=== PATIENT | female | born 1930 | race Caucasian/White ===

== ENCOUNTER → 2017-03-07 | Outpatient (CLI) | payer OTHER ==
[~2017-03-07] VITALS: Ht 157.5 cm; Wt 65.9 kg
[~2017-03-07] MED LIST: CYANOCOBALAM1000 MCG PO; GLUCOSAMINE &1 EAC1 PO; GLYBURID-METFO1 EAC3 PO; HYDROCODON-ACE1 EAC8 PO; IBUPROFEN200 M1 PO; JANUVIA100 MG PO; LOSARTAN-HCTZ1 EACH PO; NAPROSYN500 MG PO; NEXIUM40 MG PO; SYNTHROID75 MCG PO; TRAMADOL 50 MG50 MG PO; VITAMIN B-12500 MCG PO
--- NOTE | ~2017-03-07 | HPC ---
[facility] [address] [place] [address] PAIN MANAGEMENT CONSULTATION Name: CHARLY GREENFIELD Room #: REG ABBY Hayley#: [id number] Admission: 03/07/17 Attend Phys: Tonny Burns DO Discharge: Date of : 31 Report #: [id number] THIS REPORT FOR: //name// CC: ERICH Burns DATE OF SERVICE: 03/07/2017 CHIEF COMPLAINT: Left and right lower extremity pain, left hip pain. HISTORY OF PRESENT ILLNESS: As you know, the patient is an 86-year-old female who has had acute onset of left hip pain, intermittent, bilateral lower extremity pain that began on 09/10/2016. The patient denies injury or trauma that may have led to symptoms. She states she has sought evaluation through her primary care physician who trialed some conservative treatment, but no definitive assistance in her overall pain. She apparently continued to report left hip, left leg pain, the right knee pain for which the patient was then referred to our clinic to discuss options for treatment. She comes to us today without imaging studies. The patient indicates her pain is continuous; describes the pain as shooting, aching, pulling, throbbing; places current pain score 7/10, daily average 7/10, worst pain has been is 10+/10. The patient states that standing and walking exacerbates her left hip and anterior groin pain, also exacerbates her right knee pain. Rest appears to improve symptoms almost completely. PAST MEDICAL HISTORY: 1. Diabetes mellitus type 2. 2. Hypertension. 3. Chronic kidney disease. 4. Thyroid disease. 5. Degenerative joint disease. 6. Osteoarthritis. PAST SURGICAL HISTORY: Excisions of nephrolithiasis. SOCIAL HISTORY: The patient denies tobacco, alcohol, IV or illicit drug use. 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 She is not receiving workman's compensation nor is she trying to obtain disability benefits. She is accompanied by her who is present in the room today. REVIEW OF SYSTEMS: Positive for fatigue, weakness, frequent and recurrent headaches, wearing corrective eyewear, blurred and double vision, cataracts, hearing loss, chronic sinus problems with rhinitis, shortness of breath, palpitations, frequent diarrhea interspersed with constipation, abdominal pain, nocturia, kidney stones, changes in hair and nail texture, varicose veins, [address] [address] PAIN MANAGEMENT CONSULTATION Name: CHARLY GREENFIELD Room #: REG CLMarzena Hardy#: [id number] Admission: 03/07/17 Attend Phys: Tonny Burns DO Discharge: Date of : 31 Report #: [id number] numbness and tingling sensations periodically, depression, insomnia, non-insulin dependent diabetes, thyroid disease, bleeding or bruising tendencies, chronic left hip pain and right knee pain. All other review of systems negative per 12-point review of systems other than those listed in history of present illness. Pain impact score 61/70 indicating severe near complete interference of daily activities secondary to pain. ALLERGIES: No known drug allergies. CURRENT MEDICATIONS: Tramadol 50 mg every 6 hours p.r.n. for pain, ibuprofen 200 mg 3 times a day, cyanocobalamin 1000 mcg per day, glyburide/metformin 5/500 twice a day, levothyroxine 75 mcg per day, losartan/hydrochlorothiazide 50/12.5 mg twice a day. IMAGING: No imaging available. PHYSICAL EXAMINATION: VITAL SIGNS: Blood pressure 81/54, pulse 75, respiratory rate 16 unlabored. The patient is 97% on room air. Height 5 feet 2 inches tall, weight 145 pounds, BMI calculated 26.6. GENERAL: Well-developed, well-nourished, well-hydrated 86-year-old female appearing her stated age, placing current pain score at approximately 10/10 left hip, left anterior groin, right knee. HEENT: Normocephalic, atraumatic. Pupils equal, round, reactive to light. Extraocular muscles are intact. Sclerae nonicteric without injection. NEUROLOGIC: Cranial nerves 2-12 grossly intact. Speech is fluent. The patient is deemed a good historian. LUNGS: Clear. No wheeze, rhonchi or rales. CARDIOVASCULAR: Regular. No appreciable gallop or rub. ABDOMEN: Soft, mildly obese, normoactive bowel sounds. EXTREMITIES: Show no clubbing, no cyanosis, no edema. MUSCULOSKELETAL: The patient has a palpatory tenderness directly over the left hip. Both active and passive range of motion of the hip intensifies the patient's pain as does weightbearing. Internal and external rotation causes intensification of pain. Bell test positive left, negative right. Active and passive range of motion of the right knee causes intensification of pain. There is no crepitus with movement. There is no laxity of the medial or collateral ligaments. Drawer tests appear negative. There is some palpatory tenderness over the paraspinal musculature of lower lumbar spine. No spinous process tenderness. Seated straight leg raising negative. Supine straight leg raising negative. Muscle bulk and tone equal and symmetrical in lower extremities. ASSESSMENT: 1. Severe left hip pain, likely arthritic in nature. [address] [address] PAIN MANAGEMENT CONSULTATION Name: CHARLY GREENFIELD Room #: REG ABBY Hardy#: [id number] Admission: 03/07/17 Attend Phys: Tonny Burns DO Discharge: Date of : 31 Report #: [id number] 2. Chronic right knee pain, likely arthritic in nature. 3. Myofascial pain. 4. Chronic low back pain. 5. Chronic intractable pain. PLAN: 1. The patient has been referred to our service by her primary care physician, Dr. Erich Mariscal. The patient comes today without any imaging studies to evaluate the hip or the knee. I do believe this would be an important component of evaluating the patient further. From the physical exam standpoint, she appears to have fairly severe changes in the left hip, which will likely need either intra-articular hip injections for maintaining pain control for a period of time or even discussion of total hip arthroplasty. Given the findings on physical exam, I will have the patient undergo x-ray imaging as quickly as possible to review the amount of arthritic changes within that left hip, though given the physical exam today and her trouble with ambulation, she is likely suffering from either [id number] left hip pathology. We will have the patient undergo x-ray imaging, review the findings once it is available. 2. In regards to the patient's right knee pain, I believe this is compensatory to the left hip problems that she has been experiencing. Right knee appears to be fairly arthritic. There are some changes around that right knee after a fall that she sustained a couple of months back. This apparently exacerbated her knee symptoms. We will need to look at her right knee eventually as well, though her left hip is the most concerning thing today. I believe her right knee is arthritic in nature. Treatment options would include the following, as would be the treatment for her left hip. 3. We discussed physical therapy to help with left hip and right knee pain. Physical therapy will be twice a week for 4 weeks minimum, possibly extending to 6 weeks. This will increase strength and mobility, may reduce her symptoms. We discussed initiation of medication in the form of nonsteroidal anti-inflammatories to assist for pain control. The patient apparently has been taking some mebb-dgt-ntlbajo Aleve with pretty good efficacy. I would recommend at least initiation of a consistent nonsteroidal anti-inflammatory to help both with the knee and hip pain that she is experiencing currently. We discussed intra-articular knee injections on the right side and intra-articular hip injections to address both hip and knee pain. We would have to separate these by 2 weeks to decrease steroid exposures as much as possible. She will consider this as an option for treatment depending on the findings on x-ray imaging of the left hip and ultimately right knee imaging. We also discussed surgical options such as a total hip arthroplasty and either right knee arthroscopy or total right knee replacement. After reviewing risks and benefits of all proposed treatment options, the patient chose to undergo imaging of the left hip and begin the medication management. 4. The patient was provided prescription of naproxen sodium 500 mg dose 1 tab p.o. t.i.d., I have given the patient #90 tablets, 2 refills. This is 3 months' worth of medication. She is to watch for dyspepsia, worsening of blood [address] [address] PAIN MANAGEMENT CONSULTATION Name: CHARLY GREENFIELD Room #: REG ABBY Hardy#: [id number] Admission: 03/07/17 Attend Phys: Tonny Burns DO Discharge: Date of : 31 Report #: [id number] pressure, lower extremity edema with the medication, she notes any side effects, to discontinue immediately. She is then to contact the clinic with questions or concerns. 5. The patient will undergo x-ray imaging of the left hip. We will review the findings once it is available and discuss with the patient at followup visit or if she wishes to contact our clinic, we can discuss the findings over telephone. 6. We wish to thank Dr. Mariscal for the referral of the patient to our clinic. We will keep you apprised of her response to treatment as we address what appears to be left hip pathology due to osteoarthritis and right knee pain secondary to rapidly progressing arthritic changes. Again, we wish to thank you for the opportunity to see the patient in consultation. <ELECTRONICALLY SIGNED> By: Tonny Burns DO 03/08/17 [id number] Tonny Burns DO /nt
[2017-03-07 09:24] VITALS: BP 81/54
== END | disposition home or self-care (01) ==
LOC: PAIN 07:13
DX: M25.552 Pain in left hip (principal); M25.561 Pain in right knee; M79.1 Myalgia; G89.29 Other chronic pain; E11.9 Type 2 diabetes mellitus without complications; I12.9 Hypertensive chronic kidney disease with stage 1 through stage 4 chronic kidney disease, or unspecified chronic kidney disease; N18.9 Chronic kidney disease, unspecified; E07.9 Disorder of thyroid, unspecified; M19.90 Unspecified osteoarthritis, unspecified site; Z87.442 Personal history of urinary calculi

== ENCOUNTER → 2017-03-21 | Outpatient (CLI) | payer OTHER ==
[~2017-03-21] VITALS: Ht 157.5 cm; Wt 66.9 kg
--- NOTE | ~2017-03-21 | HPC ---
[facility] [address] [place] [address] PAIN MANAGEMENT CONSULTATION Name: CHARLY GREENFIELD Room #: REG ABBY Richard.#: [id number] Admission: 03/21/17 Attend Phys: Tonny Burns DO Discharge: Date of : 31 Report #: [id number] THIS REPORT FOR: //name// CC: Kevan Burns DATE OF SERVICE: 03/21/2017 REFERRING PHYSICIAN: Kevan Mariscal MD CHIEF COMPLAINT: Left and right lower extremity pain, left hip pain. HISTORY OF PRESENT ILLNESS: As you know, the patient is an 86-year-old female who was referred to our service for acute onset of left hip pain and bilateral lower extremity pain. She was seen in consultation on 03/07/2017, she was sent for imaging of the left hip as there was concerned of intrinsic hip pathology existed. We also started the patient on medication management in the form of naproxen. The patient indicates good benefit with the naproxen and in fact 4 doses of naproxen "nearly cured her hip." She returns today in followup visit indicating right lower extremity symptoms involving the knee and continued left hip pain as she has not taken her naproxen in 2 days. She indicated that she had the potential side effects with naproxen and wished to discuss this before she continues the therapy. She is placing pain score 7/10, states her pain is aching, dull, sharp and sore, exacerbated with walking, improves with rest, cold medications, and BenGay. ALLERGIES: No reported drug allergies. CURRENT MEDICATIONS: Cyanocobalamin 1000 mcg per day, glyburide/metformin 5/500 one tab b.i.d., levothyroxine 75 mcg per day, losartan/hydrochlorothiazide 50/12.5 mg twice a day, and naproxen 500 mg b.i.d. SOCIAL HISTORY: The patient denies tobacco, alcohol, IV or illicit drug use. She is accompanied by her who she is the sole provider for. IMAGIN. X-ray of the right hip obtained on 09/12/2016, shows no acute process noted changes. 2. X-ray of the left hip obtained on 03/07/2017, shows severe left hip joint narrowing. No fractures or dislocations. PHYSICAL EXAMINATION: VITAL SIGNS: Blood pressure 155/79, pulse 71, respiratory rate 18 and unlabored, the patient is 97% on room air, height 5 feet 2 inches tall, weight 147.4 pounds, and BMI calculated [place] 27. [place] [address] PAIN MANAGEMENT CONSULTATION Name: CHARLY GREENFIELD Room #: REG CL Richard.#: [id number] Admission: 03/21/17 Attend Phys: Tonny Burns DO Discharge: Date of : 31 Report #: [id number] GENERAL: Well-developed, well-nourished, well-hydrated 86-year-old female, appearing her stated age, placing current pain score 7/10. HEENT: Normocephalic, atraumatic. Pupils are equal, round, and reactive to light. EXTREMITIES: Show no clubbing, no cyanosis, and no edema. MUSCULOSKELETAL: Suzie's test is positive left, negative right. Pain is elicited with standing from a seated position. Pain is also generated with ambulating across our clinic floor. Drawer tests remain negative, both anterior and posterior bilateral knees, though there is some pain with active and passive range of motion of the right knee. ASSESSMENT: 1. Left hip osteoarthritis. 2. Right knee osteoarthritis. 3. Chronic low back pain. 4. Degeneration of lumbar spine. 5. Chronic intractable pain. PLAN: 1. The patient has returned today in followup visit where we have discussed the findings from the x-ray imaging obtained from last visit. The patient is suffering from severe arthritic changes of the left hip. There is a significant loss of joint space on this left side and this is the source of the patient's left-sided discomfort. Weightbearing and activities such as ambulation exacerbates symptoms, classic for left hip pathology. The patient is also suffering from arthritic changes in the right knee, weightbearing, passive and active range of motion appear to exacerbate the right knee pain; pain is greatly diminished upon seated position. We discussed with the patient the treatment options for right knee osteoarthritis and left knee osteoarthritis, the options for treatment include the following. We discussed physical therapy, stretching exercises to maintain use of both the hip and the knee. We discussed medication management with continuation of the naproxen sodium. The potential side effects the patient reported were not related to the medication as they were not dose dependent. I believe that her symptoms that she was experiencing issues may be exacerbated by the naproxen, but certainly not directly caused. I have advised the patient to utilize the naproxen 500 mg twice a day, determine if she has repeat of symptoms, if she does we will discuss other options for treatment including the addition of medication to assist for gastroesophageal reflux disease or rotation of medication to a potential less potent medication. The patient has prescription of the naproxen, she does not need refills at this juncture. We also discussed with the patient intraarticular joint injections involving both the hip and the knee, she might consider these options if her pain does not improve with more traditional oral medication. 2. We also discussed with the patient the possibility of surgical options certainly she is a candidate given her health at present for a total hip arthroplasty and surgical processes on the right knee. The patient wishes to [facility] [address] [place] [address] PAIN MANAGEMENT CONSULTATION Name: CHARLY GREENFIELD Room #: REG CLI [facility].#: [id number] Admission: 03/21/17 Attend Phys: Tonny Burns DO Discharge: Date of : 31 Report #: [id number] avoid this option. 3. We will see the patient back in followup visit on an as needed basis. She appears to be doing well with medication. She does have appointments to return if she wishes to make changes in her therapy. She was advised to monitor her efficacy with the naproxen and determine if no side effects were with this medication. 4. We wish to thank Dr. Mariscal for the opportunity to follow this patient's case, she wishes to return to see Dr. Mariscal and we will be available to see her back in followup visit as needed. By: 0714 1042 Tonny Burns DO /nt
[2017-03-21 10:29] VITALS: BP 155/79
== END | disposition home or self-care (01) ==
LOC: PAIN 07:05
DX: M16.12 Unilateral primary osteoarthritis, left hip (principal); M17.11 Unilateral primary osteoarthritis, right knee; M54.5 Low back pain; G89.29 Other chronic pain; M51.36 Other intervertebral disc degeneration, lumbar region

== ENCOUNTER 2017-05-03 12:00 | Emergency (ER) | payer OTHER ==
[~2017-05-03] VITALS: Ht 157.5 cm; Wt 65.8 kg
[2017-05-03 13:32] VITALS: BP 168/71
== END 2017-05-03 14:11 | disposition home or self-care (01) ==
LOC: ER 12:00
DX: T50.995A Adverse effect of other drugs, medicaments and biological substances, initial encounter (principal); G25.2 Other specified forms of tremor; I10 Essential (primary) hypertension; E03.9 Hypothyroidism, unspecified; E11.9 Type 2 diabetes mellitus without complications; K21.9 Gastro-esophageal reflux disease without esophagitis; Z98.890 Other specified postprocedural states; Z87.442 Personal history of urinary calculi; Z88.5 Allergy status to narcotic agent; Z88.6 Allergy status to analgesic agent; Z88.4 Allergy status to anesthetic agent; Y92.89 Other specified places as the place of occurrence of the external cause

== ENCOUNTER → 2017-05-03 | Outpatient (CLI) | payer OTHER ==
[~2017-05-03] VITALS: Ht 157.5 cm; Wt 65.8 kg
[~2017-05-03] MED LIST changes: +ASPIR 8181 MG PO; +LEVOTHYROXIN0.112 M1 PO; +MULTIVITAMINS1 EAC7 PO; +OMEPRAZOLE 20 M20 M1 PO; +TUMS PO; +VITAMIN D31000 UNI2 PO; +VOLTAREN GEL 1100 G2 TOP
--- NOTE | ~2017-05-03 | P ---
[facility] [place] [address] [place] [address] PROCEDURE REPORT Name: CHARLY GREENFIELD Room #: REG DELBERTMarzena Hardy#: [id number] Admission: 05/03/17 Attend Phys: Yadiel Howard Discharge: Date of : 31 Report #: [id number] THIS REPORT FOR: //name// CC: Yadiel Mariscal MD DATE OF SERVICE: 05/03/2017 PROCEDURE PERFORMED: Upper endoscopy with biopsies. HISTORY OF PRESENT ILLNESS: The patient is an 86-year-old female who was taking Naprosyn twice a day for arthritic pain, began having black stool, she is now held this Naprosyn for the last 2 weeks. She is also on aspirin on a daily basis. She has been placed on omeprazole, which she has been on for several weeks as well. She denies any further melanotic stools. She was having abdominal pain, but no further. She denies any dysphagia. No previous, history of peptic ulcer disease. DESCRIPTION OF PROCEDURE: The risks and benefits of the procedure were explained to the patient, those risks including, but not limited to bleeding, perforation, and the risk of sedation. She understood these risks and gave informed consent. Sedation was given using propofol per anesthesia. Next, using a standard Convertio Coinon upper endoscope, the scope was placed in the patient's mouth and advanced under direct vision through the esophagus, stomach, and into the second portion of the duodenum. The esophagus was normal throughout. The GE junction was normal. Overall, the gastric mucosa was normal. The pylorus was normal and patent. In the proximal portion of the duodenal bulb, a 1.2 cm clean white based ulcer was noted and no evidence of bleeding, no visible vessel or clots. The first and second portions of the duodenum were normal. The scope was then brought back into the patient's stomach and biopsies were obtained to rule out the possibility of H. pylori. The scope was then withdrawn and the procedure terminated. The patient tolerated the procedure well. IMPRESSION: 1. Duodenal bulb ulcer. 2. Otherwise, normal upper endoscopy. RECOMMENDATIONS: 1. Await biopsy results. 2. Continue PPI therapy. 3. We would continue holding the aspirin for the next 2 weeks. If the patient remains on aspirin or NSAIDs in the future, we would recommend continuing PPI therapy indefinitely. [address] [address] PROCEDURE REPORT Name: CHARLY GREENFIELD Room #: REG ABBY Hardy#: [id number] Admission: 05/03/17 Attend Phys: Yadiel Howard Discharge: Date of : 31 Report #: [id number] Thank you for allowing me to participate in her care. <ELECTRONICALLY SIGNED> By: Yadiel Garcia MD 05/06/17 0812 [id number] Yadiel Garcia MD /nt
--- NOTE | ~2017-05-03 | S ---
[facility] [place] [address] [place] [address] SURGICAL PATH RPT PROCEDURE Name: CHARLY KIM Room #: REG CLMrazena Richard.#: [id number] Admission: 05/03/17 Date of : 31 Discharge: Report #: [id number] Path Case #: [id number] PATHOLOGY REPORT COLLECTION DATE: 05/03/2017 RECEIVED DATE: 05/04/2017 SUBMITTING PHYS: Dr. Yadiel Garcia OTHER PHYS: Dr. Kevan Mariscal SPECIMEN(S) RECEIVED: A.Gastric bx * * * * * * * * * * * * FINAL DIAGNOSIS: Gastric mucosa, endoscopic biopsy: - Mild reactive gastropathy. - Negative for intestinal metaplasia or atrophy. - Negative for Helicobacter pylori. COMMENT: Helicobacter pylori immunohistochemical stain performed on block A1 - Negative. PATHOLOGIST: Stacie Rondon M.D. REPORT ELECTRONICALLY SIGNED BY: Stacie Rondon M.D. DATE/TIME: 05/05/2017 17:34 * * * * * * * * * * * * GROSS PATHOLOGY: Received in formalin labeled "Charly Kim, gastric biopsy," are 4 segments of resendiz soft tissue measuring 0.7 x 0.4 x 0.2 cm in aggregate dimensions and ranging from 0.2 to 0.5 cm in maximum dimension. The specimen is submitted entirely in cassette A1. (KAH; 05/04/2017) CLINICAL HISTORY: Pre-op diagnosis: Anemia Post-op diagnosis: Duodenal ulcer INITIAL CPT CODE(S): A; 70025, 77885 Professional services performed by [facility] at [facility] [address], [place] [address] [facility] [address] [place] [address] SURGICAL PATH RPT PROCEDURE Name: CHARLY KIM Room #: REG [facility] M.R.#: [id number] Admission: 05/03/17 Date of : 31 Discharge: Report #: [id number] Path Case #: [id number] [facility] at [address] [place] [address], [facility] [address] [address]. [facility] [address] [place] [address] PHONE: [phone] DIRECTOR: Roderick Beard M.D. * * * END OF REPORT * * *
== END ==
LOC: GI 09:35
DX: K26.9 Duodenal ulcer, unspecified as acute or chronic, without hemorrhage or perforation (principal); M17.0 Bilateral primary osteoarthritis of knee; K21.9 Gastro-esophageal reflux disease without esophagitis; K31.9 Disease of stomach and duodenum, unspecified
CPT/HCPCS: 62110; 62900

== ENCOUNTER → 2017-06-27 | Outpatient (CLI) | payer OTHER | END | disposition home or self-care (01) | LOC: RAD 09:40 | DX: M25.552 Pain in left hip (principal); M19.90 Unspecified osteoarthritis, unspecified site; K21.9 Gastro-esophageal reflux disease without esophagitis; Z98.890 Other specified postprocedural states ==

== ENCOUNTER → 2020-08-31 | Outpatient (CLI) | payer OTHER | LOC: CAT 08:29 | PROVIDERS: ATTEND Family Medicine | DX: N20.0 Calculus of kidney (principal); K57.30 Diverticulosis of large intestine without perforation or abscess without bleeding; N27.0 Small kidney, unilateral; R13.10 Dysphagia, unspecified; J98.4 Other disorders of lung; Z88.8 Allergy status to other drugs, medicaments and biological substances ==

== ENCOUNTER → 2021-07-26 | Outpatient (CLI) | payer OTHER | LOC: MRI 09:57 | PROVIDERS: ATTEND Nurse Practitioner | DX: M43.16 Spondylolisthesis, lumbar region (principal); M47.26 Other spondylosis with radiculopathy, lumbar region; M51.16 Intervertebral disc disorders with radiculopathy, lumbar region; M48.061 Spinal stenosis, lumbar region without neurogenic claudication; M25.78 Osteophyte, vertebrae; M47.27 Other spondylosis with radiculopathy, lumbosacral region; M48.07 Spinal stenosis, lumbosacral region; R29.898 Other symptoms and signs involving the musculoskeletal system ==